=== PATIENT | female | born 1970 | race Caucasian/White ===

== ENCOUNTER 2016-07-11 17:27 | Emergency (ER) | payer OTHER ==
[~2016-07-11] VITALS: Ht 170.2 cm; Wt 106.6 kg
[~2016-07-11 17:27] MED LIST: NOHOMEMEDS
[2016-07-11 19:30] VITALS: BP 134/87
== END 2016-07-11 19:42 | disposition home or self-care (01) ==
LOC: EXP 17:27 → EME 17:27 → EXP 19:42
DX: S63.502A Unspecified sprain of left wrist, initial encounter (principal); W23.0XXA Caught, crushed, jammed, or pinched between moving objects, initial encounter
CPT/HCPCS: 73110; 99281; 99284